=== PATIENT | female | born 1950 | race Caucasian/White ===

== ENCOUNTER 2017-09-10 19:59 | Emergency (ER) | END 2017-09-11 00:38 | disposition home or self-care (01) ==

== ENCOUNTER 2017-09-17 00:23 | Inpatient (IN) | END 2017-09-21 21:10 | DRG 470 ==

== ENCOUNTER 2017-10-17 23:00 | Inpatient (IN) | END 2017-11-04 22:20 | DRG 467 ==

== ENCOUNTER 2017-11-10 22:16 | Inpatient (IN) | END 2017-11-30 17:30 | DRG 814 ==

== ENCOUNTER 2018-04-14 02:36 | Emergency (ER) | payer MEDICARE, OTHER ==
[~2018-04-14] VITALS: Ht 162.6 cm; Wt 68.2 kg
[~2018-04-14 02:36] MED LIST: ACET-2047 PO; BISA10SU55 RC; GABA300C16 PO; HYDR-4011 PO; LORA10CA PO; MULT-542 PO; NA P133E10 RC; OMEP20CA16 PO; OXYC-279 PO; SENN-120 PO; SERT50TA6 PO
[2018-04-14 02:39] VITALS: Ht 162.6 cm; Wt 68.2 kg
[2018-04-14] MEDS ORDERED: ONDANSETRON (ODT) 4 MG TAB ODT STA (02:53)
[2018-04-14] MEDS ORDERED: HYDROCODONE/APAP (10/325) TAB PO ONE (03:00)
[2018-04-14] MEDS ORDERED: HYDR-4011 PO (03:55)
[2018-04-14] MEDS ORDERED: NALO4SPR NS (03:55)
--- NOTE | 2018-04-14 04:34 | ERD ---
ER Documentation Chief Complaint Chief Complaint BIBA s/p fall, c/o pain right thigh & hip HPI Patient is a 67-year-old female with history of right-sided hip replacement who presents with right hip pain. She was brought in by ambulance. She said that she fell out of bed and had right hip pain and can go off the floor. She fell at 11 PM. She did not pass out. Upon review of old medical records this is the patient's fifth visit to the ER since August 2017. She does not have a primary doctor and does not remember the name of the orthopedic surgeon at [facility]– [place] although based on review of old medical records it appears to be Dr. Choi. ROS All systems reviewed and are negative except as per history of present illness. Medications Home Meds Active Scripts Naloxone HCl nasal spray (Narcan 4 mg/0.1 mL nasal) 4 Mg [place], 4 MG NS .Q2-3MIN for OPIOID OVERDOSE, #2 SPRAY 0 Refills [place] 0.1 mL into one nostril. Repeat with second device into other nostril after 2-3 minutes if no or minimal response Prov:MARTÍN PEREZ MD 04/14/18 Hydrocodone/Acetaminophen ([place] 5-325 Tablet) 1 Each Tablet, 1 TAB PO Q6H PRN for PAIN, #7 TAB Prov:MARTÍN PEREZ MD 04/14/18 Reported Medications Sertraline Hcl* (Sertraline Hcl*) 50 Mg Tablet, 50 MG PO DAILY, #30 TAB 11/10/17 Sennosides* (Senna Lax*) 8.6 Mg Tablet, 2 TAB PO QHS, TAB 11/10/17 Oxycodone HCl/Acetaminophen (Percocet 5-325 mg Tablet) 1 Each Tablet, 1 EACH PO Q4 PRN for PAIN LEVEL6-10, TAB 11/10/17 Omeprazole* (Omeprazole*) 20 Mg Capsule., 20 MG PO DAILY, #30 CAP 11/10/17 Multivitamin* (Daily Value*) 1 Each Tablet, 1 TAB PO DAILY, TAB 11/10/17 Loratadine* (Claritin*) 10 Mg Capsule, 10 MG PO DAILY, CAP 11/10/17 Discontinued Reported Medications Hydrocodone/Acetaminophen ([place] 5-325 Tablet) 1 Each Tablet, 2 EACH PO Q6 PRN for PAIN LEVEL 7-10, TAB 11/10/17 Hydrocodone/Acetaminophen ([place] 5-325 Tablet) 1 Each Tablet, 1 EACH PO Q6 PRN for PAIN LEVEL 4-6, TAB 11/10/17 Gabapentin* (Gabapentin*) 300 Mg Capsule, 300 MG PO TID, #90 CAP 11/10/17 Na Phos,M-B/Na Phos,Di-Ba (ENEMA OEGLU-OE-NPA) 133 Ml Enema, 133 ML RC EVERY 72 HOURS PRN for CONSTIPATION, ENEMA 11/10/17 Bisacodyl (Dulcolax) 10 Mg Supp.rect, 10 MG RC EVERY 48 HOURS PRN for CONSTIPATION, SUPP.RECT 11/10/17 Acetaminophen* (Acetaminophen*) 650 Mg Tablet, 650 MG PO Q6H PRN for PAIN AND OR ELEVATED TEMP, #30 TAB 11/10/17 Allergies Allergies: Coded Allergies: No Known Allergy (Unverified , 04/14/18) PMhx/Soc History of Surgery: Yes (2000 gastric bypass; 2005 reversal of gastric bypass; hernia; RT hip x2) Anesthesia Reaction: Yes Hx Neurological Disorder: No Hx Respiratory Disorders: No Hx Cardiac Disorders: Yes (HTN) Hx Psychiatric Problems: Yes (Depression) Hx Miscellaneous Medical Probl: Yes (HTN, depression, recent R hip arthroplasty/ORIF, R hip infection) Hx Alcohol Use: No Hx Substance Use: No Hx Tobacco Use: Yes Smoking Status: Current some day smoker FmHx Family History: No diabetes Physical Exam Vitals Vital Signs Date Temp Pulse Resp B/P (MAP) Pulse Ox O2 O2 Flow FiO2 Time Delivery Rate 04/14/18 97.7 84 19 133/79 100 02:39 (97) Physical Exam Const: No acute distress Head: Atraumatic Eyes: Normal Conjunctiva ENT: Normal External Ears, Nose and Mouth. Neck: Full range of motion. No meningismus. Resp: Clear to auscultation bilaterally Cardio: Regular rate and rhythm, no murmurs Abd: Soft, non tender, non distended. Normal bowel sounds Skin: No petechiae or rashes Back: No midline or flank tenderness Ext: No shortening or rotation of the right leg, there is pain with range of motion both flexion, internal rotation, and external rotation Neur: Awake and alert Psych: Normal Mood and Affect Results 24 hrs Current Medications Medications Dose Sig/Mane Start Time Status Last (Trade) Ordered Route PRN Stop Time Admin Dose Reason Admin 1 tab ONCE ONCE 04/14/18 DC 04/14/18 Acetaminophen PO 03:00 03:08 / 04/14/18 03:01 Hydrocodone Bitart ([place] (10/325)) Ondansetron 4 mg ONCE STAT 04/14/18 DC 04/14/18 HCl (Zofran ODT 02:53 03:08 Odt) 04/14/18 02:54 Procedures/MDM X-ray Femur 4V Interpreted by me: Bones: Previous hip replacement with no fracture or dislocation seen Joints: No dislocation Foreign body: None Smoking Cessation Therapy: Pt. was lectured for greater than 3 minutes on the health risks of continued smoking and the benefits of cessation. Patient is a 67-year-old female with previous right-sided hip replacement who presents with right hip pain after fall. There is no fracture or dislocation. I believe outpatient management is appropriate at this time. The patient will be discharged. She was given [place] in the emergency department for pain. She will be given a short course of [place] and Narcan to go home with. She can return for any worsening symptoms. Departure Diagnosis: Primary Impression: Hip pain Laterality: right Qualified Codes: M25.551 - Pain in right hip Condition: Fair Patient Instructions: Possible Causes of Low Back or Leg Pain Referrals: LEANDRO CHOI MD Additional Instructions: SPECIALIST: YOU HAVE A MEDICAL CONDITION WHICH REQUIRES YOU TO SEE A SPECIALIST WITHIN THE NEXT 1-2 DAYS. PLEASE FOLLOW UP WITH YOUR PRIMARY PHYSICIAN FOR REFFERAL.IF YOU DO NOT HAVE A PRIMARY CARE PHYSICIAN AND/OR YOU CAN NOT AFFORD TO SEE A PHYSICIAN THE FOLLOWING RESOURCES HAVE BEEN SUPPLIED TO YOU. IT IS YOUR RESPONSIBILITY TO BE SEEN BY THE SPECIALIST MARTÍN PEREZ MD Apr 14, 2018 04:34
[2018-04-14] MEDS ORDERED: KETOROLAC 30 MG INJ IM STA (05:24)
[2018-04-14 08:47] VITALS: BP 133/71; PULSE 71; RESP 18
== END 2018-04-14 08:51 | disposition home or self-care (01) ==
LOC: E/R 02:36
DX: M25.551 Pain in right hip (principal); R40.2252 Coma scale, best verbal response, oriented, at arrival to emergency department; R40.2362 Coma scale, best motor response, obeys commands, at arrival to emergency department; R40.2142 Coma scale, eyes open, spontaneous, at arrival to emergency department; I10 Essential (primary) hypertension; F17.210 Nicotine dependence, cigarettes, uncomplicated; Z96.641 Presence of right artificial hip joint
CPT/HCPCS: 73550; 96372; 99284; J1885; 73551

== ENCOUNTER 2018-12-09 13:53 | Emergency (ER) | payer MEDICARE ==
[~2018-12-09] VITALS: Ht 162.6 cm; Wt 81.8 kg
[~2018-12-09 13:53] MED LIST changes: -ACET-2047 PO; -BISA10SU55 RC; -GABA300C16 PO; +HYDR-3980 PO; +IBUP-1561 PO; -NA P133E10 RC; +NALO4SPR NS; +NAR2I NS; -OMEP20CA16 PO; +OMEP20CA17 PO
[2018-12-09 14:37] VITALS: BP 141/63; PULSE 82; RESP 18; Ht 162.6 cm; Wt 81.8 kg
[2018-12-09] MEDS ORDERED: HYDROCODONE/APAP (10/325) TAB PO ONE (17:00)
== END 2018-12-09 19:41 | disposition home or self-care (01) ==
LOC: FTE 13:53
DX: M25.551 Pain in right hip (principal); I10 Essential (primary) hypertension; Z87.891 Personal history of nicotine dependence
CPT/HCPCS: 72192